=== PATIENT | male | born 2000 | race Hispanic/Latino ===

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

== ENCOUNTER 2022-07-18 19:37 | Emergency (ER) | payer MEDICAID ==
[~2022-07-18] VITALS: Ht 167.6 cm; Wt 86.2 kg
[2022-07-18 19:38] VITALS: BP 141/94
[2022-07-18] MEDS ORDERED: IBUPROFEN 800 MG TAB PO ONE (20:30)
[2022-07-18] MEDS ORDERED: ACETAMINOPHEN 500 MG TABLET PO ONE (20:30)
[2022-07-18] MEDS ORDERED: D-ME1POW16 PO (21:38)
[2022-07-18] MEDS ORDERED: OSEL75 PO (21:38)
[2022-07-18] MEDS ORDERED: OSELTAMIVIR PHOSPHATE 75 MG CAP ONE (21:44)
[2022-07-18] MEDS ORDERED: OSELTAMIVIR PHOSPHATE 75 MG CAP PO SCH (22:00)
== END 2022-07-18 21:52 | disposition home or self-care (01) ==
LOC: EDH 19:37
DX: J10.1 Influenza due to other identified influenza virus with other respiratory manifestations (principal); Z98.890 Other specified postprocedural states
CPT/HCPCS: 87804

== ENCOUNTER 2022-12-23 18:31 | Emergency (ER) | payer MEDICAID ==
[~2022-12-23] VITALS: Ht 167.6 cm; Wt 88.5 kg
[~2022-12-23 18:31] MED LIST: D-ME1POW16 PO; OSEL75 PO
[2022-12-23 18:35] VITALS: BP 147/86
[2022-12-23] MEDS ORDERED: IBUPROFEN 600 MG TABLET PO ONE (19:00)
[2022-12-23] MEDS ORDERED: HYDROCODONE/ACETAMINOPHEN 5/325 MG TAB PO ONE (19:00)
[2022-12-23] MEDS ORDERED: IBUP-2070 PO (20:14)
[2022-12-23] MEDS ORDERED: ACET-66 PO (20:14)
== END 2022-12-23 20:22 | disposition home or self-care (01) ==
LOC: EDH 18:31
DX: S90.31XA Contusion of right foot, initial encounter (principal); W01.0XXA Fall on same level from slipping, tripping and stumbling without subsequent striking against object, initial encounter; Z79.899 Other long term (current) drug therapy; Z98.890 Other specified postprocedural states; Y93.89 Activity, other specified; Y92.89 Other specified places as the place of occurrence of the external cause; Y99.8 Other external cause status
CPT/HCPCS: 73630

== ENCOUNTER 2023-02-11 23:57 | Emergency (ER) | payer MEDICAID ==
[~2023-02-11] VITALS: Ht 167.6 cm; Wt 88.0 kg
[~2023-02-11 23:57] MED LIST changes: +ACET-66 PO; +IBUP-2070 PO
[2023-02-12] VITALS: BP 139/90
[2023-02-12] MEDS ORDERED: IBUPROFEN 600 MG TABLET PO ONE (00:30)
[2023-02-12] MEDS ORDERED: IBUP-1493 PO (02:12)
[2023-02-12] MEDS ORDERED: CYCL-309 PO (02:12)
== END 2023-02-12 02:20 | disposition home or self-care (01) ==
LOC: EDH 23:57
DX: M79.18 Myalgia, other site (principal); V89.2XXA Person injured in unspecified motor-vehicle accident, traffic, initial encounter; Y93.89 Activity, other specified; Y92.89 Other specified places as the place of occurrence of the external cause; Y99.8 Other external cause status
CPT/HCPCS: 72050; 72072; 72110

== ENCOUNTER 2023-03-30 18:54 | Emergency (ER) | payer MEDICAID ==
[~2023-03-30] VITALS: Ht 167.6 cm; Wt 88.5 kg
[~2023-03-30 18:54] MED LIST changes: +CYCL-309 PO; +IBUP-1493 PO
[2023-03-30 20:44] VITALS: BP 132/80
[2023-03-30] MEDS ORDERED: TETANUS/DIPHTHERIA TOXOID [ADULT] 0.5 ML VIAL IM ONE (22:00)
== END 2023-03-30 22:24 | disposition home or self-care (01) ==
LOC: EDH 18:54
DX: S61.213A Laceration without foreign body of left middle finger without damage to nail, initial encounter (principal); W45.8XXA Other foreign body or object entering through skin, initial encounter; Y93.89 Activity, other specified; Y92.89 Other specified places as the place of occurrence of the external cause; Y99.8 Other external cause status
CPT/HCPCS: 73140; 90471; 90714

== ENCOUNTER 2023-07-21 20:14 | Emergency (ER) | payer BC, MEDICAID ==
[~2023-07-21] VITALS: Ht 167.6 cm; Wt 90.7 kg
[2023-07-21 20:32] VITALS: BP 141/70; PULSE 68; RESP 16
[2023-07-21] MEDS ORDERED: AMOX500C2 PO (22:47)
[2023-07-21 22:48] LABS: RAPID GROUP A STREP negative (NEGATIVE)
[2023-07-21 22:59] LABS: INFLUENZA TYPE A Negative For Type A (NEGATIVE); INFLUENZA TYPE B Negative For Type B (NEGATIVE)
[2023-07-21] MEDS ORDERED: CEFTRIAXONE 1G VIAL IM ONE (23:00)
[2023-07-21] MEDS ORDERED: LIDOCAINE HCL 2% VISCOUS 15 ML UDCUP PO ONE (23:00)
[2023-07-21] MEDS ORDERED: DEXAMETHASONE SOD PHOSPHATE 4 MG/ML 1ML VIAL IM ONE (23:00)
[2023-07-21 23:03] LABS: SARS-CoV-2, RNA, NAAT NEGATIVE SARS CoV-2 (NEGATIVE)
== END 2023-07-22 00:02 | disposition home or self-care (01) ==
LOC: EDH 20:14
DX: J02.9 Acute pharyngitis, unspecified (principal); R50.9 Fever, unspecified; R05.9 Cough, unspecified; Z79.1 Long term (current) use of non-steroidal anti-inflammatories (NSAID); Z20.822 Contact with and (suspected) exposure to COVID-19
CPT/HCPCS: 99284; 87635; 87880; 87804 ×2; 96372 ×2; J1100; C9803; J0696

== ENCOUNTER 2024-03-20 22:27 | Emergency (ER) | payer BC, MEDICAID ==
[~2024-03-20] VITALS: Ht 167.6 cm; Wt 92.1 kg
[~2024-03-20 22:27] MED LIST changes: +AMOX500C2 PO
[2024-03-20 22:45] LABS: ADD UA MICROSCOPIC NO; APPEARANCE,URINE CLEAR (CLEAR); BILIRUBIN,URINE NEGATIVE (NEGATIVE); COLOR,URINE LIGHT-YELLOW (YELLOW); GLUCOSE, URINE (UA) NEGATIVE (NEGATIVE); KETONES,URINE NEGATIVE (NEGATIVE); LEUKOCYTE ESTERASE ,URINE NEGATIVE Leu/uL (NEGATIVE); NITRATE,URINE NEGATIVE (NEGATIVE); OCCULT BLOOD,URINE NEGATIVE (NEGATIVE); PROTEIN,URINE NEGATIVE (NEGATIVE); UROBILINOGEN,URINE 0.2 mg/dL (0.2-1.0)
[2024-03-21 00:44] LABS: CREATININE 1.1 mg/dL (0.5-1.3); POTASSIUM 3.5 mmol/L (3.5-5.1)
[2024-03-21 00:48] LABS: ALBUMIN 4.2 g/dL (3.5-5.0); BILIRUBIN,TOTAL 0.5 mg/dL (0.2-1.0); TOTAL PROTEIN, SERUM 7.7 g/dL (6.0-8.3)
[2024-03-21 00:53] LABS: BASOPHILS # (AUTO) 0.05 K/uL (0.00-0.20); BASOPHILS % (AUTO) 0.5 % (0.0-5.0); HEMATOCRIT 47.2 % (42-54); IMMATURE GRANULOCYTE ABSOLUTE 0.04 K/uL (0-1); LYMPHOCYTES # (AUTO) 3.7 K/uL (1.0-4.8); LYMPHOCYTES % (AUTO) 36.1 % (21.0-51.0); MEAN CORPUSCULAR HEMOGLOBIN 32.2 pg (27.0-33.0); MEAN CORPUSCULAR HGB CONC 35.2 g/dL (32.0-36.0); MEAN CORPUSCULAR VOLUME 91.7 fL (79-99); MONOCYTES # (AUTO) 0.8 K/uL (0.1-1.0); MONOCYTES % (AUTO) 8.2 % (3.0-13.0); NEUTROPHILS # (AUTO) 5.5 K/uL (1.8-7.7); NEUTROPHILS % (AUTO) 53.8 % (40.0-77.0); PLATELET COUNT (AUTO) 243 K/uL (130-400); RED BLOOD CELL COUNT(AUTO) 5.15 MIL/uL (4.50-6.20); RED CELL DISTRIBUTION WIDTH 11.9 % (11.0-15.5); WHITE BLOOD COUNT (AUTO) 10.2 K/uL (4.8-10.8)
[2024-03-21] MEDS: DiphenhydrAMINE HCL 50 MG/ML VIAL IV ONE (01:49)
[2024-03-21] MEDS: METOCLOPRAMIDE 10 MG/2 ML VIAL IVP ONE (01:49)
[2024-03-21] MEDS: 0.9%NACL 1000ML 1,000 ML IV ONE (01:49)
[2024-03-21 01:50] VITALS: BP 134/72; PULSE 86; RESP 18; O2SAT 98
[2024-03-21] MEDS: ACETAMINOPHEN 500 MG TABLET PO ONE (01:50)
== END 2024-03-21 02:29 | disposition home or self-care (01) ==
LOC: EDH 22:27
DX: G43.909 Migraine, unspecified, not intractable, without status migrainosus (principal); Z79.2 Long term (current) use of antibiotics; Z79.899 Other long term (current) drug therapy
CPT/HCPCS: 99284; 70450; 80053; 85025; 81003; 36415; 96374; 96375; J1200; J7030 ×2; J2765

== ENCOUNTER 2024-12-20 14:42 | Emergency (ER) | payer BC, MEDICAID ==
[~2024-12-20] VITALS: Ht 167.6 cm; Wt 89.8 kg
[2024-12-20] MEDS: TETRACAINE HCL 0.5% 4 ML OPHTH SOLN OP ONE (15:50)
[2024-12-20] MEDS: FLUORESCEIN SODIUM 1 STRIP STRIP OP ONE (15:50)
--- NOTE | 2024-12-20 16:23 | ERN ---
General Chief Complaint: Eye Problems Stated Complaint: WOKE UP WITH RED EYE Time Seen by MD: 14:43 Time Seen by Midlevel: 14:43 Source: patient History of Present Illness Initial Comments 24-year-old male who presents to the ED due to right eye redness. Patient reports he feels a sensation of an object in his eyes. States he was working on his truck yesterday but does not recall anything getting into his eye. Denies any fever, blurry vision or further associated symptoms. Denies significant past medical history. Allergies: Coded Allergies: No Known Drug Allergies (Unverified Allergy, Unknown, 02/26/19) Home Meds Active Scripts Amoxicillin (Amoxicillin) 500 Mg Capsule, 500 MG PO BID for 10 Days, #20 CAP 0 Refills Prov:NORI GARCIA 07/21/23 Ibuprofen (Motrin/Advil) 800 Mg Tab, 800 MG PO TID, #30 TAB Prov:ENRIQUE WITT MD 02/12/23 Cyclobenzaprine HCl (Cyclobenzaprine HCl) 10 Mg Tablet, 10 MG PO TID, #60 TAB Prov:ENRIQUE WITT MD 02/12/23 Ibuprofen (Ibuprofen) 600 Mg Tablet, 600 MG PO Q6H PRN for PAIN, #15 TAB Prov:MARY BYRD 12/23/22 Acetaminophen (Acetaminophen) 500 Mg Tablet, 500 MG PO Q4PRN for 5 Days, #15 TAB Prov:MARY BYRD 12/23/22 D-Methorphan/PE/Acetaminophen (Theraflu Ms Severe Cold Pckt) 1 Each Powd.pack, 1 EACH PO QID, #20 PACK Prov:CARON SOUTH 07/18/22 Oseltamivir Phosphate (Tamiflu) 75 Mg Cap, 75 MG PO BID for 5 Days, #10 CAP Prov:CARON SOUTH 07/18/22 Past Medical History Past Medical History: Migraines Past Surgical History: None Surgical History Other: BMT Family History Family History: Negative Social History Social History: Lives with family ROS Dictation Constitutional: Negative for fever,chills, and weight loss Eyes: Positive for right eye redness, foreign object sensation Negative for injury, pain and discharge ENT: Negative for injury,pain or swelling Cardiovascular: Negative for chest pain, palpitations, and edema Respiratory: Negative for shortness of breath, cough, and wheezing, Abdomen/GI: Negative for abdominal pain, nausea, vomiting, diarrhea, and constipation Back: Negative for injury and pain : Negative for painful urination, bleeding or discharge MS/Extremity: Negative for injury and deformity Skin: Negative for rash, and discoloration Neuro: Negative for headache, weakness, numbness, tingling, and seizure Psych: Negative for suicide ideation, homicidal ideation, and hallucinations Physical Exam Physical Exam Dictation General: awake, alert, no acute distress Head/Face: Normocephalic, atraumatic Eyes: PERRL, EOMI, L eye normal conjunctiva, right subconjunctival hemorrhage lateral aspect, negative Wood's lamp exam, no foreign objects noted ENT: oral cavity clear, oral mucosa moist Neck: Supple, normal range of motion Cardiovascular: RRR, normal S1/S2 Respiratory: No respiratory distress Skin: Warm, dry, normal turgor, no rash MS/Extremity: Pulses equal, no cyanosis, neurovascular intact, FROM Neuro: COAx4, GCS 15, strength 5/5, CN 2-12 intact, normal cerebellar exam, normal gait Psych: Normal behavior, mood, and affect normal MDM MDM: Differential diagnosis: Foreign object in the right eye, corneal abrasion, subconjunctival hemorrhage, conjunctivitis Rationale: 24-year-old male who presents to the ED due to right eye redness. Patient reports he feels a sensation of an object in his eyes. States he was working on his truck yesterday but does not recall anything getting into his eye. Denies any fever, blurry vision or further associated symptoms. Denies significant past medical history. Per physical examination subconjunctival hemorrhage noted to the right eye lateral aspect, no foreign objects noted in the eye. Wood's lamp exam performed negative for corneal abrasions or ulcerations. Patient was educated on findings and diagnosis. Advised to follow up with PCP. Return to the emergency department if any worsening symptoms. Patient verbalized understanding. Patient stable for discharge. There are no social concerns with this patient. I independently interpreted the test that were performed, results were reviewed by me and considered findings on radiology if ordered. Medical management and examination interpretation discussions were had by me with other qualified healthcare professionals as indicated for the patient's care. ED Course Orders Procedure Category Date Status Time Tetracaine Hcl PHA 3/25/25 Complete (Pontocaine 0.5% 15:30 Fluorescein Sodium PHA 12/20/24 Complete (Wcjbr-N-Hgcmj At) 15:30 Current Medications Medications (Trade) Dose Ordered Sig/[place] Route PRN Reason Start Time Stop Time Status Last Admin Dose Admin Fluorescein Sodium (Cyhoe-O-Yfypl At) 1 strip ONCE ONCE OP 12/20/24 15:30 12/20/24 15:45 DC 12/20/24 15:50 Tetracaine HCl (Pontocaine 0.5% Ophth Soln) 1 OR 2 DROPS ONCE ONCE OP 12/20/24 15:30 12/20/24 15:45 DC 12/20/24 15:50 Vital Signs Date Time Temp Pulse Resp B/P (MAP) Pulse Ox O2 Delivery O2 Flow Rate FiO2 12/20/24 16:30 97.9 77 18 138/69 98 Room Air* 0 21 12/20/24 15:19 98.1 65 18 142/90 100 0 DX & DISP Disposition: Discharge Departure Impression: Primary Impression: Subconjunctival hemorrhage of right eye Condition: Stable Additional Instructions: Discharge home. Rest. Follow up with primary care DrAltaf in 24 hours. Return to the ER for any acute changes or worsening symptoms. If any medications were prescribed take as directed. Okay to continue home medications unless otherwise discussed during your visit in the emergency room today. Patient was also advised to follow-up with primary care physician in 1 to 2 days for continued monitoring. Referrals: SELF,REFERRAL (PCP) I performed the substantive portion of the visit. I have reviewed and personally made and approve the management plan that is documented in the notes by myself or the SUSAN. I acknowledge full responsibility for the patient's management plan. ALEA BONILLA Dec 20, 2024 16:23
[2024-12-20 16:30] VITALS: BP 138/69; PULSE 77; RESP 18; TEMP 97.9; O2SAT 98
== END 2024-12-20 16:31 | disposition home or self-care (01) ==
LOC: EDH 14:42
DX: H11.31 Conjunctival hemorrhage, right eye (principal); Z79.1 Long term (current) use of non-steroidal anti-inflammatories (NSAID); Z94.81 Bone marrow transplant status; Z79.899 Other long term (current) drug therapy
CPT/HCPCS: 99283

== ENCOUNTER 2025-01-26 16:41 | Emergency (ER) | payer BC ==
[~2025-01-26] VITALS: Ht 167.6 cm; Wt 92.5 kg
[2025-01-26 17:18] VITALS: BP 150/102; PULSE 82; RESP 20; TEMP 98; O2SAT 99
--- NOTE | 2025-01-26 17:27 | ERN ---
ED Note History of Present Illness Stated Complaint: GBW Chief Complaint: Weakness Time Seen by MD: 16:43 Time Seen by Midlevel: 16:45 Dictation: 24-YEAR-OLD MALE WITH NO MEDICAL HISTORY COMING IN FOR EVALUATION OF POSSIBLE DEHYDRATION. 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 DENIES HAVING ANY NAUSEA, VOMITING OR DIARRHEA. DENIES ANY OTHER COMPLAINTS. Allergies: Coded Allergies: No Known Drug Allergies (Unverified Allergy, Unknown, 02/26/19) Home Meds Active Scripts Amoxicillin (Amoxicillin) 500 Mg Capsule, 500 MG PO BID for 10 Days, #20 CAP 0 Refills Prov:NORI GARCIA 07/21/23 Ibuprofen (Motrin/Advil) 800 Mg Tab, 800 MG PO TID, #30 TAB Prov:ENRIQUE WITT MD 02/12/23 Cyclobenzaprine HCl (Cyclobenzaprine HCl) 10 Mg Tablet, 10 MG PO TID, #60 TAB Prov:ENRIQUE WITT MD 02/12/23 Ibuprofen (Ibuprofen) 600 Mg Tablet, 600 MG PO Q6H PRN for PAIN, #15 TAB Prov:MARY BYRD 12/23/22 Acetaminophen (Acetaminophen) 500 Mg Tablet, 500 MG PO Q4PRN for 5 Days, #15 TAB Prov:MARY BYRD 12/23/22 D-Methorphan/PE/Acetaminophen (Theraflu Ms Severe Cold Pckt) 1 Each Powd.pack, 1 EACH PO QID, #20 PACK Prov:CARON SOUTH 07/18/22 Oseltamivir Phosphate (Tamiflu) 75 Mg Cap, 75 MG PO BID for 5 Days, #10 CAP Prov:CARON SOUTH 07/18/22 Past Medical History Past Medical History: No Pertinent History Surgical History: None Surgical History Other: BMT Family History: Negative Social History: Lives with family Review of System Dictation CONSTITUTIONAL: NEGATIVE FOR FEVER,CHILLS, AND WEIGHT LOSS EYES: NEGATIVE FOR INJURY, PAIN,REDNESS, AND DISCHARGE ENT: NEGATIVE FOR INJURY,PAIN OR SWELLING CARDIOVASCULAR: NEGATIVE FOR CHEST PAIN, PALPITATIONS, AND EDEMA RESPIRATORY: NEGATIVE FOR SHORTNESS OF BREATH, COUGH, AND WHEEZING, ABDOMEN/GI: NEGATIVE FOR ABDOMINAL PAIN, NAUSEA, VOMITING, DIARRHEA, AND CONSTIPATION BACK: NEGATIVE FOR INJURY AND PAIN : NEGATIVE FOR INJURY, BLEEDING AND DISCHARGE MS/EXTREMITY: NEGATIVE FOR INJURY AND DEFORMITY SKIN: NEGATIVE FOR RASH, AND DISCOLORATION NEURO: NEGATIVE FOR HEADACHE, WEAKNESS, NUMBNESS, TINGLING, AND SEIZURE PSYCH: NEGATIVE FOR SUICIDE IDEATION, HOMICIDAL IDEATION, AND HALLUCINATIONS Review of Systems: was completed Initial Vital Sign VS Vital Signs Date Time Temp Pulse Resp B/P (MAP) Pulse Ox O2 Delivery O2 Flow Rate FiO2 01/26/25 16:43 98.1 82 20 150/102 98 Room Air 0 01/26/25 17:18 21 Physical Exam Dictation GENERAL: AWAKE, ALERT, NAD HEAD/FACE: NORMOCEPHALIC, ATRAUMATIC EYES: PERRL, EOMI, VISION AT BASELINE ENT: ORAL CAVITY CLEAR, TMS CLEAR, NO SIGNS OF INFECTION NECK: TRACHEA MIDLINE, SUPPLE, NO NUCHAL RIGIDITY CARDIOVASCULAR: RRR, NORMAL S1/S2, NO MRGS, NO JVD RESPIRATORY: CTAB, NO RESPIRATORY DISTRESS, NO RALES OR WHEEZES ABDOMEN: SOFT, NON-TENDER, NON-DISTENDED, NORMAL BOWEL SOUNDS, NO GUARDING OR REBOUND. SKIN: WARM, DRY, NORMAL TURGOR, NO RASH MS/EXTREMITY: PULSES EQUAL, NO CYANOSIS, NEUROVASCULAR INTACT, FROM NEURO: COAX4, GCS 15, STRENGTH 5/5, CN 2-12 INTACT, NORMAL CEREBELLAR EXAM, NORMAL GAIT, PSYCH: NORMAL BEHAVIOR, MOOD, AND AFFECT NORMAL ED Course ED Course Vital Signs Date Time Temp Pulse Resp B/P (MAP) Pulse Ox O2 Delivery O2 Flow Rate FiO2 01/26/25 17:18 98.1 82 20 150/102 99 Room Air* 0 21 01/26/25 16:43 98.1 82 20 150/102 98 Room Air 0 Medical Decision Making MDM 24-YEAR-OLD MALE WITH NO MEDICAL HISTORY COMING IN FOR EVALUATION OF POSSIBLE DEHYDRATION. 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 DENIES HAVING ANY NAUSEA, VOMITING OR DIARRHEA. DENIES ANY OTHER COMPLAINTS. PATIENT HAD 1726 ELOPED. DX & DISP Disposition: Discharge Departure Impression: Primary Impression: Eloped from emergency department Condition: Stable Referrals: SELF,REFERRAL (PCP) Time of Disposition: 17:27 I have reviewed the case, and I agree with, Diagnosis and Plan CATARINO MAGALLANES ESTIMATING ENGINEER January 26, 2025 17:27 JELENA BILLINGS DO January 27, 2025 10:31
== END 2025-01-26 17:28 | disposition left against medical advice (07) ==
LOC: EDH 16:41
DX: R51.9 Headache, unspecified (principal); Z79.1 Long term (current) use of non-steroidal anti-inflammatories (NSAID); Z79.899 Other long term (current) drug therapy; Z94.81 Bone marrow transplant status
CPT/HCPCS: 99281

== ENCOUNTER 2025-03-11 00:14 | Emergency (ER) | payer BC ==
[~2025-03-11] VITALS: Ht 167.6 cm; Wt 92.5 kg
--- NOTE | 2025-03-11 01:09 | ERN ---
ED Note History of Present Illness Stated Complaint: ABD PAIN , N/V Chief Complaint: Abdominal Pain Time Seen by MD: 00:17 Dictation: This is a 24-year-old male who presented to the emergency room with complaints of abdominal pain nausea vomitings that started today. Denied any fevers chills or rigors no hematemesis or melena. Temperature 97.3 pulse 75 respirations 18 blood pressure initially 162/100 which improved to 130 8/89 with a pulse oximetry of 98% on room Allergies: Coded Allergies: No Known Drug Allergies (Unverified Allergy, Unknown, 02/26/19) Home Meds Active Scripts Amoxicillin (Amoxicillin) 500 Mg Capsule, 500 MG PO BID for 10 Days, #20 CAP 0 Refills Prov:NORI GARCIA 07/21/23 Ibuprofen (Motrin/Advil) 800 Mg Tab, 800 MG PO TID, #30 TAB Prov:ENRIQUE WITT MD 02/12/23 Cyclobenzaprine HCl (Cyclobenzaprine HCl) 10 Mg Tablet, 10 MG PO TID, #60 TAB Prov:ENRIQUE WITT MD 02/12/23 Ibuprofen (Ibuprofen) 600 Mg Tablet, 600 MG PO Q6H PRN for PAIN, #15 TAB Prov:MARY BYRD 12/23/22 Acetaminophen (Acetaminophen) 500 Mg Tablet, 500 MG PO Q4PRN for 5 Days, #15 TAB Prov:MARY BYRD 12/23/22 D-Methorphan/PE/Acetaminophen (Theraflu Ms Severe Cold Pckt) 1 Each Powd.pack, 1 EACH PO QID, #20 PACK Prov:CARON SOUTH 07/18/22 Oseltamivir Phosphate (Tamiflu) 75 Mg Cap, 75 MG PO BID for 5 Days, #10 CAP Prov:CARON SOUTH 07/18/22 Past Medical History Past Medical History: Asthma Surgical History: None Surgical History Other: BMT Family History: Negative Social History: Lives with family RN Note Reviewed/Agreed w/PFSH: Yes Review of System Dictation Constitutional: Negative for fever,chills, and weight loss Eyes: Negative for injury, pain,redness, and discharge ENT: Negative for injury,pain or swelling Cardiovascular: Negative for chest pain, palpitations, and edema Respiratory: Negative for shortness of breath, cough, and wheezing, Abdomen/GI: Positive for abdominal pain, nausea, vomiting, diarrhea, Back: Negative for injury and pain : Negative for injury, bleeding and discharge MS/Extremity: Negative for injury and deformity Skin: Negative for rash, and discoloration Neuro: Negative for headache, weakness, numbness, tingling, and seizure Psych: Negative for suicide ideation, homicidal ideation, and hallucinations Initial Vital Sign VS Vital Signs Date Time Temp Pulse Resp B/P (MAP) Pulse Ox O2 Delivery O2 Flow Rate FiO2 03/11/25 00:19 97.3 75 18 162/100 99 Room Air 03/11/25 00:39 0 21 Physical Exam Dictation General: awake, alert, NAD Head/Face: Normocephalic, atraumatic Eyes: PERRL, EOMI, vision at baseline ENT: oral cavity clear, TMs clear, no signs of infection Neck: Trachea midline, supple, no nuchal rigidity Cardiovascular: RRR, normal S1/S2, No MRGs, no JVD Respiratory: CTAB, no respiratory distress, No rales or wheezes Abdomen: Soft, non-tender, non-distended, normal bowel sounds, no guarding or rebound. Skin: Warm, dry, normal turgor, no rash MS/Extremity: Pulses equal, no cyanosis, neurovascular intact, FROM Neuro: COAx4, GCS 15, strength 5/5, CN 2-12 intact, normal cerebellar exam, normal gait, Psych: Normal behavior, mood, and affect normal Extremities-trace edema without any palpable cords, Homans sign is negative Results (Laboratory/Radiology) Laboratory/Radiology Laboratory Tests Test 03/11/25 01:16 03/11/25 02:07 White Blood Count 8.1 K/uL (4.8-10.8) Red Blood Count 4.74 MIL/uL (4.50-6.20) Hemoglobin 15.4 g/dL (14.0-18.0) Hematocrit 42.5 % (42-54) Mean Corpuscular Volume 89.7 fL (79-99) Mean Corpuscular Hemoglobin 32.5 pg (27.0-33.0) Mean Corpuscular Hemoglobin Concent 36.2 g/dL (32.0-36.0) H Red Cell Distribution Width 11.9 % (11.0-15.5) Platelet Count 251 K/uL (130-400) Mean Platelet Volume 9.2 fL (7.5-10.5) Immature Granulocyte % (Auto) 0.2 % (0-1) Neutrophils (%) (Auto) 64.1 % (40.0-77.0) Lymphocytes (%) (Auto) 25.2 % (21.0-51.0) Monocytes (%) (Auto) 9.6 % (3.0-13.0) Eosinophils (%) (Auto) 0.7 % (0.0-8.0) Basophils (%) (Auto) 0.2 % (0.0-5.0) Neutrophils # (Auto) 5.2 K/uL (1.8-7.7) Lymphocytes # (Auto) 2.0 K/uL (1.0-4.8) Monocytes # (Auto) 0.8 K/uL (0.1-1.0) Eosinophils # (Auto) 0.06 K/uL (0.00-0.70) Basophils # (Auto) 0.02 K/uL (0.00-0.20) Absolute Immature Granulocyte (auto 0.02 K/uL (0-1) Nucleated Red Blood Cells 0.0 % (0.0-0.19) Red Blood Cell Morphology See comments Sodium Level 143 mmol/L (136-145) Potassium Level 3.4 mmol/L (3.5-5.1) L Chloride Level 106 mmol/L (101-111) Carbon Dioxide Level 28 mmol/L (21-32) Blood Urea Nitrogen 12 mg/dL (7-18) Creatinine 0.8 mg/dL (0.5-1.3) Glomerular Filtration Rate Calc 128 mL/min (>90) Random Glucose 115 mg/dL (70-105) H Total Calcium 9.1 mg/dL (8.5-10.1) Lipase 47 U/L (16-77) Urine Color LIGHT-YELLOW (YELLOW) Urine Appearance CLEAR (CLEAR) Urine pH 6.0 (5.0-8.0) Urine Specific [place] 1.014 (1.001-1.031) Urine Protein NEGATIVE mg/dL (NEGATIVE) Urine Glucose (UA) NEGATIVE mg/dL (NEGATIVE) Urine Ketones NEGATIVE mg/dL (NEGATIVE) Urine Occult Blood NEGATIVE (NEGATIVE) Urine Nitrate NEGATIVE (NEGATIVE) Urine Bilirubin NEGATIVE mg/dL (NEGATIVE) Urine Urobilinogen 0.2 mg/dL (0.2-1.0) Urine Leukocyte Esterase NEGATIVE Jovanni/uL Labs Reviewed?: Yes ED Course ED Course Orders Procedure Category Date Status Time Cbc With Differential LAB 03/11/25 Complete 00:59 Urinalysis Profile LAB 03/11/25 In Process 00:59 Lipase LAB 03/11/25 Complete 00:59 Basic Metabolic Panel LAB 03/11/25 Complete 00:59 Drug Screen Urine LAB 03/11/25 In Process 00:59 Ketorolac PHA 03/11/25 Complete Tromethamine 15mg/Ml 01:30 Ondansetron 4mg Inj PHA 03/11/25 Complete (Zofran 4mg Inj) 01:30 Dicyclomine Hcl PHA 03/11/25 Complete (Bentyl 20mg Inj) 01:30 Current Medications Medications (Trade) Dose Ordered Sig/[place] Route PRN Reason Start Time Stop Time Status Last Admin Dose Admin Dicyclomine HCl (Bentyl 20mg Inj) 20 mg ONCE ONCE IM 03/11/25 01:30 03/11/25 01:31 DC 03/11/25 01:28 Ketorolac Tromethamine (toRADol) 15 mg ONCE ONCE IV 03/11/25 01:30 03/11/25 01:31 DC 03/11/25 01:27 Ondansetron HCl (zoFRAN 4MG INJ) 4 mg ONCE ONCE IVP 03/11/25 01:30 03/11/25 01:31 DC 03/11/25 01:28 Vital Signs Date Time Temp Pulse Resp B/P (MAP) Pulse Ox O2 Delivery O2 Flow Rate FiO2 03/11/25 00:39 98.1 68 18 138/89 99 Room Air* 0 21 03/11/25 00:19 97.3 75 18 162/100 99 Room Air We will perform diagnostic labs, and administer medications according to the patient's complaint. Once the results are available, will review and personally interpreted the labs to rule out any acute life-threatening emergency the trach require immediate intervention and treatment. I will then re-evaluate the patient after treatment and diagnostic exams have return to determine whether the patient requires any further testing, can safely be discharged home or need further admission to hospital for additional treatment and evaluation. 2:00 a.m.-CBC is with a normal limits BNP 7 showed a potassium of 3.4. Patient is clinically significantly improved and feels a whole lot better DC to follow up with the PCP Medical Decision Making MDM MDM: Differential diagnosis: Food poisoning, gastroenteritis, gastritis, cholecystitis biliary colic, pancreatitis, recreational drugs-marijuana induced Rationale: Tests considered and ordered secondary to shared decision making include: Previous outside records reviewed: Old ER visits. Risk of complication and/or morbidity or mortality of patient management: None Medications-Per medication reconciliation Need for hospitalization: Patient does not meet criteria for hospitalization. Need for emergency major/minor surgery: No There are no social concerns with this patient. Prescription drug management Prescriptions will include symptomatic care Patient's prior external medical records from other ER visits were reviewed by me as indicated. Prior testing and results from previous visits were reviewed. Prior tests were taken into account with medical decision making and resource utilization, independent historian/historians were used to obtain complete medical history. I independently interpreted the test that were performed, results were reviewed by me and considered findings on radiology if ordered. Medical management and examination interpretation discussions were had by me with other qualified healthcare professionals as indicated for the patient's care. Problem List Problem List: (1) Gastroenteritis DX & DISP Disposition: Discharge Departure Impression: Primary Impression: Gastroenteritis Additional Impression: Hypokalemia Condition: Stable Additional Instructions: Patient and the caregiver have been informed of all the diagnostic tests and the imaging conducted during the today's visit to the emergency room and has verbalized understanding of the results I have personally reviewed and interpreted all diagnostic exams performed here in the ER today as well as the vital signs documented by the nursing staff. The patient is now being discharged to home and should follow up with the primary care physician or the specialist as directed by the ER staff. Follow-up with primary care provider in 1 to 2 days. Take medications as directed here in the emergency room. Okay to continue home medications unless otherwise discussed during your visit in the emergency room today. Return to your nearest emergency room if symptoms worsen or if there is no improvement. Call 911 if you need immediate assistance. Take Tylenol or Motrin [id number] as needed and if no contraindications are present. Increase oral hydration. A wound culture or urine culture was ordered here in the e mergency room department please follow-up with primary care provider and advise them to get repeat ports from our facility. If you had any Yuan wrap/splints that were applied here, please do not remove them until you see your primary care or specialty. Referrals: SELF,REFERRAL (PCP) LESLYE VAZQUEZ MD Mar 11, 2025 01:09
[2025-03-11 01:23] LABS: BASOPHILS # (AUTO) 0.02 K/uL (0.00-0.20); BASOPHILS % (AUTO) 0.2 % (0.0-5.0); EOSINOPHILS # (AUTO) 0.06 K/uL (0.00-0.70); EOSINOPHILS % (AUTO) 0.7 % (0.0-8.0); HEMATOCRIT 42.5 % (42-54); IMMATURE GRANULOCYTE ABSOLUTE 0.02 K/uL (0-1); LYMPHOCYTES % (AUTO) 25.2 % (21.0-51.0); MEAN CORPUSCULAR HEMOGLOBIN 32.5 pg (27.0-33.0); MEAN CORPUSCULAR HGB CONC 36.2 g/dL (32.0-36.0); MEAN CORPUSCULAR VOLUME 89.7 fL (79-99); MONOCYTES # (AUTO) 0.8 K/uL (0.1-1.0); MONOCYTES % (AUTO) 9.6 % (3.0-13.0); NEUTROPHILS # (AUTO) 5.2 K/uL (1.8-7.7); NEUTROPHILS % (AUTO) 64.1 % (40.0-77.0); PLATELET COUNT (AUTO) 251 K/uL (130-400); RED BLOOD CELL COUNT(AUTO) 4.74 MIL/uL (4.50-6.20); RED CELL DISTRIBUTION WIDTH 11.9 % (11.0-15.5); WHITE BLOOD COUNT (AUTO) 8.1 K/uL (4.8-10.8)
[2025-03-11] MEDS: ketOROlac 15MG/ML VIAL (15MG/ML) IV ONE (01:27)
[2025-03-11] MEDS: DICYCLOMINE 20MG (10MG/ML) AMP IM ONE (01:28)
[2025-03-11] MEDS: ondanSETRON 4MG INJ IVP ONE (01:28)
[2025-03-11 01:30] LABS: CREATININE 0.8 mg/dL (0.5-1.3); POTASSIUM 3.4 mmol/L (3.5-5.1)
[2025-03-11 02:22] LABS: APPEARANCE,URINE CLEAR (CLEAR); BILIRUBIN,URINE NEGATIVE (NEGATIVE); COLOR,URINE LIGHT-YELLOW (YELLOW); GLUCOSE, URINE (UA) NEGATIVE (NEGATIVE); KETONES,URINE NEGATIVE (NEGATIVE); LEUKOCYTE ESTERASE ,URINE NEGATIVE Leu/uL (NEGATIVE); NITRATE,URINE NEGATIVE (NEGATIVE); OCCULT BLOOD,URINE NEGATIVE (NEGATIVE); PROTEIN,URINE NEGATIVE (NEGATIVE); UROBILINOGEN,URINE 0.2 mg/dL (0.2-1.0)
[2025-03-11 02:24] LABS: ADD UA MICROSCOPIC NO
[2025-03-11 02:58] LABS: AMPHET/METH SCREEN,URINE NEGATIVE (NEGATIVE); BARBITURATE SCREEN, URINE NEGATIVE (NEGATIVE); BENZODIAZEPINES SCREEN,URINE NEGATIVE (NEGATIVE); CANNABINOID SCREEN,URINE NEGATIVE (NEGATIVE); COCAINE SCREEN,URINE NEGATIVE (NEGATIVE); OPIATE SCREEN,URINE NEGATIVE (NEGATIVE); PHENCYCLIDINE SCREEN,URINE NEGATIVE (NEGATIVE)
[2025-03-11 03:07] VITALS: BP 126/81; PULSE 63; RESP 15; TEMP 98.4; O2SAT 99
== END 2025-03-11 03:38 | disposition home or self-care (01) ==
LOC: EDH 00:14
DX: K52.9 Noninfective gastroenteritis and colitis, unspecified (principal); E87.6 Hypokalemia; J45.909 Unspecified asthma, uncomplicated; Z79.1 Long term (current) use of non-steroidal anti-inflammatories (NSAID); Z94.81 Bone marrow transplant status; Z79.899 Other long term (current) drug therapy
CPT/HCPCS: 99284; 96374; 96375; 80048; 80305; 83690; 85025; 81003; 36415; 96372; J1885; J2405; J0500